=== PATIENT | male | born 2000 | race Caucasian/White ===

== ENCOUNTER 2021-09-25 15:05 | Outpatient (CLI) | payer OTHER, SELFPAY ==
--- NOTE | ~2021-09-25 | US_ITS ---
EXAMINATION: US scrotum doppler DATE: 09/25/2021 15:38 INDICATION: Left testicular pain. TECHNIQUE: Grayscale and Doppler ultrasound images of the testes were obtained. COMPARISON: None. FINDINGS: The right testis measures 4.6 x 3.2 x 2.1 cm. The left testis measures 4.3 x 3.1 x 2.1 cm. There is normal vascular flow to both testes. The right epididymis is normal with normal vascular mina w. The left epididymis is normal with normal vascular flow. There is no hydrocele. There is a left-si ded varicocele. IMPRESSION: 1. Left-sided varicocele. Reviewed, dictated and finalized at location A. IMPRESSION: 1. Left-sided varicocele.
== END 2021-09-25 15:06 | disposition home or self-care (01) ==
PROVIDERS: PCP Nurse Practitioner; Visit Provider Nurse Practitioner
DX: N50.812 Left testicular pain (principal); I86.1 Scrotal varices
CPT/HCPCS: 76870; 93976